=== PATIENT | female | born 1950 | race Caucasian/White ===

== ENCOUNTER 2022-05-09 06:17 | Day surgery (SDC) | payer MEDICARE, OTHER ==
[~2022-05-09] VITALS: Ht 154.9 cm; Wt 64.5 kg
[2022-05-09] MEDS ORDERED: BENZOCAINE 20% 50 MCG/SPRAY 57 GM TP ONE (06:18)
[2022-05-09] MEDS ORDERED: LIDOCAINE 4% 50 ML SOLUTION TP ONE (06:18)
[2022-05-09] MEDS ORDERED: LIDOCAINE 2% 11 ML JELLY TP ONE (06:18)
[2022-05-09] MEDS ORDERED: SODIUM CHLORIDE 0.9% 1,000 ML IV ONE (06:30)
[2022-05-09 06:44] LABS: COVID AG,FIA SOURCE NASAL SWAB
[2022-05-09] MEDS ORDERED: SODIUM CHLORIDE 0.9% 1,000 ML ONE (06:45)
[2022-05-09] MEDS ORDERED: RALO60 PO (07:39)
[2022-05-09] MEDS ORDERED: CHOL500013 PO (07:39)
[2022-05-09] MEDS ORDERED: FAMO20 PO (07:39)
[2022-05-09] MEDS ORDERED: MONT-35 PO (07:39)
[2022-05-09] MEDS ORDERED: CA C1TAB97 PO (07:39)
[2022-05-09] MEDS ORDERED: MIRT-89 PO (07:39)
[2022-05-09] MEDS ORDERED: FentaNYL CITRATE PF 100 MCG/2 ML VIAL ONE (08:22)
[2022-05-09] MEDS ORDERED: MIDAZOLAM HCL 5 MG/ML VIAL ONE (08:22)
[2022-05-09] MEDS ORDERED: MethylPREDNISolone SOD SUCC 125 MG/2 ML VIAL ONE (08:41)
[2022-05-09] MEDS ORDERED: MethylPREDNISolone SOD SUCC 125 MG/2 ML VIAL IVP ONE (09:00)
[2022-05-09] MEDS ORDERED: OXYGEN THERAPY IH SCH (20:00)
== END 2022-05-09 11:00 | disposition home or self-care (01) ==
LOC: SURGERY 06:17
PROVIDERS: ATTEND Internal Medicine Critical Care Medicine
DX: J38.4 Edema of larynx (principal); I10 Essential (primary) hypertension; B37.0 Candidal stomatitis; Z20.822 Contact with and (suspected) exposure to COVID-19; Z85.038 Personal history of other malignant neoplasm of large intestine; Z98.49 Cataract extraction status, unspecified eye; G47.30 Sleep apnea, unspecified; Z79.899 Other long term (current) drug therapy; Z80.8 Family history of malignant neoplasm of other organs or systems; Z98.890 Other specified postprocedural states
CPT/HCPCS: 31623; 87101; 87220; 87070; 88108; 88305; 31624; 71045; 87015; 87426; 87206; J3010; J2930; J2250; Q9967; J7030; C9803; Z7610